=== PATIENT | female | born 1980 | race African-American/Black ===

== ENCOUNTER 2017-07-24 10:44 | Emergency (ER) | payer OTHER ==
[~2017-07-24] VITALS: Ht 170.2 cm; Wt 83.9 kg
--- NOTE | ~2017-07-24 | EKG ---
[address] [place] [address] ELECTROCARDIOGRAM REPORT Name: JAYA RAY Room #: DEP [facility]#: [id number] Admission: 07/24/17 Attend Phys: Discharge: 07/24/17 Date of : 84 Report #: [id number] THIS REPORT FOR: //name// [facility] ED Test Date: 2017-07-24 Test Time: 11:27:19 Pat Name: JAYA RAY Department: Room: Gender: F Pump Servicer: [facility] : 1980 Requested By: Marlene Victor Order Number: [id number] MD: Armando Steele Measurements Intervals [place] Rate: 79 P: 15 [place]: 143 QRS: -28 QRSD: 88 T: -8 QT: 366 QTc: 420 Interpretive Statements Sinus arrhythmia Left ventricular hypertrophy Borderline T abnormalities, inferior leads No previous ECG available for comparison Electronically Signed On 07-25-2017 12:58:20 [employer] by Armando Steele [email or web address] <ELECTRONICALLY SIGNED> By: Armando Steele MD, [facility] 07/25/17 [id number] Armando Steele MD, FACC /EPI
[2017-07-24 11:21] LABS: ABSOLUTE NEUTROPHILS 7.6 thou/uL (1.4-8.2); BASOPHILS 0.7 % (0.0-2.0); EOSINOPHILS 0.5 % (0.0-3.0); HEMATOCRIT 40.4 % (37.0-47.0); HEMOGLOBIN 13.2 gm/dL (12.0-15.0); LYMPHOCYTES 19.9 % (24.0-44.0); MCH 27.1 pg (26.0-34.0); MCHC 32.7 g/dL (28.0-37.0); MCV 82.9 fL (80.0-100.0); MONOCYTES 6.8 % (1.0-8.0); PLATELET COUNT 180 thou/uL (150-400); POLYS 72.1 % (36.0-66.0); RBC 4.88 mil/uL (4.20-5.00); RDW 13.6 % (10.5-14.5); WBC 10.5 thou/uL (4.0-11.0)
[2017-07-24 11:29] LABS: CALCIUM 9.3 mg/dL (8.5-10.1); POTASSIUM 3.5 mmol/L (3.5-5.1)
[2017-07-24 12:09] LABS: URINE BILIRUBIN NEGATIVE (Negative); URINE BLOOD 1+ (Negative); URINE CLARITY CLEAR; URINE COLOR YELLOW; URINE GLUCOSE-RANDOM* NEGATIVE (Negative); URINE KETONES NEGATIVE (Negative); URINE LEUKOCYTES-REFLEX NEGATIVE (Negative); URINE NITRITE-REFLEX NEGATIVE (Negative); URINE PROTEIN (DIPSTICK) NEGATIVE (Negative); URINE SPECIFIC GRAVITY <= 1.005 (1.005-1.035); URINE UROBILINOGEN 0.2 E.U./dl (0.2-1.0)
[2017-07-24 13:11] LABS: CASTS None Seen /LPF (None Seen); SQUAMOUS 0-3 Few /LPF (0-3)
[2017-07-24 13:12] LABS: BACTERIA-REFLEX 1-9 Few /HPF (None Seen); CRYSTALS None Seen /LPF (None Seen); URINE RBC 0-2 Rare /HPF (0-2); URINE WBC-REFLEX 0-5 Rare /HPF (0-5)
== END 2017-07-24 14:04 | disposition home or self-care (01) ==
LOC: ER 10:44
PROVIDERS: Emergency Medicine
DX: R00.2 Palpitations (principal); I48.91 Unspecified atrial fibrillation; F10.99 Alcohol use, unspecified with unspecified alcohol-induced disorder; Z91.040 Latex allergy status